=== PATIENT | female | born 1960 | race Caucasian/White ===

== ENCOUNTER 2019-01-02 18:43 | Emergency (ER) | payer MEDICAID ==
[~2019-01-02] VITALS: Ht 160 cm; Wt 65.8 kg
[~2019-01-02 18:43] MED LIST: ACETAMINOPHEN-1 EAC1 PO; ALBUTEROL2.5 MG/3 M INH; AMOXICILLIN 50500 MG PO; CLEOCIN HCL150 MG PO; CYCLOBENZAPRINE5 MG PO; DOXYCYCLINE 10100 MG PO; HYDROCODON-ACE1 EAC7 PO; HYDROCODONE-AP1 EAC6 PO; NAPROSYN500 MG PO; NOHOMEMEDICATIONS; NORCO 5-325 TA1 EACH PO; PENICILLIN VK250 MG PO; PREDNISONE 20 M20 M1 PO; PREDNISONE 20 M20 MG PO; PROAIR HFA8.5 GM INH; ROBAXIN 750 MG750 M1 PO; VENTOLIN HFA 1818 GM INH; XANAX 0.5 MG0.5 MG PO; ZPAK PO; ZYRTEC10 M5 PO
[2019-01-02 18:49] VITALS: BP 143/72
[2019-01-02] MEDS ORDERED: CLARITIN10 MG PO (18:58)
[2019-01-02] MEDS ORDERED: ZPAK PO (19:19)
[2019-01-02] MEDS ORDERED: PROAIR HFA8.5 GM INH (19:19)
[2019-01-02] MEDS ORDERED: PREDNISONE 20 M20 MG PO (19:19)
--- NOTE | 2019-01-03 10:29 | EKG ---
[place] [address] ELECTROCARDIOGRAM REPORT Name: LEN KUMAR Alexsandra Room: [facility]#: [id number] Admission: 01/02/19 Attend Phys: Discharge: 01/02/19 Date of : 56 Report #: [id number] THIS REPORT FOR: //name// [facility] ED Test Date: 2019-01-02 Test Time: 18:50:53 Pat Name: LEN KUMAR Department: Room: Gender: F [employer]: : 1960 Requested By: Zulma Frank Order Number: [id number] Justin MD: Chino Lugo Measurements Intervals [place] Rate: 117 P: 77 FL: 152 QRS: -13 QRSD: 85 T: 66 QT: 308 QTc: 430 Interpretive Statements Sinus tachycardia Low voltage, precordial leads Abnormal R-wave progression, early transition Baseline wander in lead(s) II,III No previous ECG available for comparison Electronically Signed On 01-03-2019 10:29:19 CDT by Chino Lugo [email or web address] <ELECTRONICALLY SIGNED> By: Chino Lugo MD, [facility] 01/03/19 1029 1850 1850 Chino Lugo MD, [facility] /EPI
== END 2019-01-02 19:15 | disposition left against medical advice (07) ==
LOC: M.ERS 18:43
DX: J80 Acute respiratory distress syndrome (principal); J44.9 Chronic obstructive pulmonary disease, unspecified; Z87.891 Personal history of nicotine dependence; Z88.6 Allergy status to analgesic agent; Z88.8 Allergy status to other drugs, medicaments and biological substances; Z88.1 Allergy status to other antibiotic agents; Z88.5 Allergy status to narcotic agent

== ENCOUNTER 2019-03-11 18:23 | Emergency (ER) | payer MEDICAID ==
[~2019-03-11] VITALS: Ht 160 cm; Wt 71.7 kg
[~2019-03-11 18:23] MED LIST changes: +CLARITIN10 MG PO
[2019-03-11 18:28] VITALS: BP 145/96
[2019-03-11] MEDS ORDERED: TESSALON PERLE100 M1 PO (18:55)
[2019-03-11] MEDS ORDERED: AZITHROMYCIN500 MG PO (18:55)
[2019-03-11] MEDS ORDERED: CLARITIN10 MG PO (18:55)
[2019-03-11] MEDS ORDERED: PREDNISONE 20 M20 MG PO (18:55)
[2019-03-11] MEDS ORDERED: ALBUTEROL2.5 MG/31 INH (18:55)
== END 2019-03-11 19:13 | disposition home or self-care (01) ==
LOC: M.ERS 18:23
DX: J44.9 Chronic obstructive pulmonary disease, unspecified (principal); J30.9 Allergic rhinitis, unspecified; Z76.0 Encounter for issue of repeat prescription; Z87.891 Personal history of nicotine dependence; Z88.8 Allergy status to other drugs, medicaments and biological substances; Z88.1 Allergy status to other antibiotic agents; Z88.5 Allergy status to narcotic agent

== ENCOUNTER 2019-08-01 09:11 | Emergency (ER) | payer MEDICAID ==
[~2019-08-01] VITALS: Ht 172.7 cm; Wt 63.5 kg
[~2019-08-01 09:11] MED LIST changes: +ALBUTEROL2.5 MG/31 INH; +AZITHROMYCIN500 MG PO; +TESSALON PERLE100 M1 PO
[2019-08-01] MEDS ORDERED: PROAIR HFA8.5 GM INH (09:18)
[2019-08-01] MEDS ORDERED: XANAX 0.25 MG0.25 MG PO (09:18)
[2019-08-01] MEDS ORDERED: PREDNISONE50 MG PO (09:59)
[2019-08-01] MEDS ORDERED: VENTOLIN HFA 1818 GM INH (09:59)
[2019-08-01 10:08] VITALS: BP 122/80
== END 2019-08-01 10:05 | disposition home or self-care (01) ==
LOC: M.ERS 09:11
DX: J44.1 Chronic obstructive pulmonary disease with (acute) exacerbation (principal); Z76.0 Encounter for issue of repeat prescription; Z88.1 Allergy status to other antibiotic agents; Z88.5 Allergy status to narcotic agent; Z88.6 Allergy status to analgesic agent; Z87.891 Personal history of nicotine dependence; Z98.51 Tubal ligation status

== ENCOUNTER 2019-08-31 11:38 | Emergency (ER) | payer MEDICAID ==
[~2019-08-31] VITALS: Ht 162.6 cm; Wt 63.5 kg
[~2019-08-31 11:38] MED LIST changes: +PREDNISONE50 MG PO; +XANAX 0.25 MG0.25 MG PO
[2019-08-31 11:50] VITALS: BP 151/81
[2019-08-31] MEDS ORDERED: NEBULIZER MISCELL ×3 (12:17→12:28)
[2019-08-31] MEDS ORDERED: TESSALON PERLE100 MG PO (12:17)
[2019-08-31] MEDS ORDERED: PREDNISONE 10 M10 MG PO (12:17)
[2019-08-31] MEDS ORDERED: PROAIR HFA8.5 GM INH (12:17)
[2019-08-31] MEDS ORDERED: IPRAT-ALBUT 0.5-3 ML INH (12:17)
== END 2019-08-31 12:38 | disposition left against medical advice (07) ==
LOC: M.ERS 11:38
DX: J44.1 Chronic obstructive pulmonary disease with (acute) exacerbation (principal); Z76.0 Encounter for issue of repeat prescription; R00.0 Tachycardia, unspecified; Z88.1 Allergy status to other antibiotic agents; Z88.6 Allergy status to analgesic agent; Z88.8 Allergy status to other drugs, medicaments and biological substances; Z87.891 Personal history of nicotine dependence; Z98.51 Tubal ligation status

== ENCOUNTER 2019-10-06 09:28 | Emergency (ER) | payer MEDICAID ==
[~2019-10-06] VITALS: Ht 162.6 cm; Wt 65.8 kg
[~2019-10-06 09:28] MED LIST changes: +IPRAT-ALBUT 0.5-3 ML INH; +NEBULIZER MISCELL; +PREDNISONE 10 M10 MG PO; +TESSALON PERLE100 MG PO
[2019-10-06] MEDS ORDERED: VENTOLIN HFA 1818 GM INH ×2 (11:06→11:09)
[2019-10-06] MEDS ORDERED: ZPAK PO ×3 (11:06→11:10)
[2019-10-06] MEDS ORDERED: PROAIR HFA8.5 GM INH ×2 (11:09→11:10)
[2019-10-06 11:15] VITALS: BP 143/69
== END 2019-10-06 11:16 | disposition home or self-care (01) ==
LOC: M.ERS 09:28
DX: J18.9 Pneumonia, unspecified organism (principal); J44.9 Chronic obstructive pulmonary disease, unspecified; Z88.6 Allergy status to analgesic agent; Z88.1 Allergy status to other antibiotic agents; Z88.5 Allergy status to narcotic agent; Z88.8 Allergy status to other drugs, medicaments and biological substances; Z87.891 Personal history of nicotine dependence

== ENCOUNTER 2020-03-21 10:55 | Emergency (ER) | payer MEDICAID ==
[~2020-03-21] VITALS: Ht 160 cm; Wt 65.8 kg
[2020-03-21] MEDS ORDERED: ZPAK PO (11:53)
[2020-03-21] MEDS ORDERED: VENTOLIN HFA 1818 GM INH (11:53)
[2020-03-21] MEDS ORDERED: PREDNISONE 20 M20 M1 PO (11:53)
[2020-03-21 12:27] VITALS: BP 140/109
== END 2020-03-21 12:28 | disposition home or self-care (01) ==
LOC: M.ERS 10:55
DX: J44.1 Chronic obstructive pulmonary disease with (acute) exacerbation (principal); Z20.828 Contact with and (suspected) exposure to other viral communicable diseases; Z88.1 Allergy status to other antibiotic agents; Z88.6 Allergy status to analgesic agent; Z88.8 Allergy status to other drugs, medicaments and biological substances